=== PATIENT | female | born 1970 | race Caucasian/White ===

== ENCOUNTER → 2018-09-08 | Outpatient (CLI) | payer SELFPAY | END | disposition home or self-care (01) | LOC: LABSPEC 15:43 | PROVIDERS: Family Provider Family Medicine; PCP Family Medicine; Referring Provider Obstetrics & Gynecology; Visit Provider Obstetrics & Gynecology | DX: R30.0 Dysuria (principal) | CPT/HCPCS: 87086; 87088; 87186 ==

== ENCOUNTER 2019-07-25 12:15 | Emergency (ER) | payer BC, SELFPAY ==
[2019-07-25 12:16] VITALS: BP 191/102; PULSE 83; RESP 18; TEMP 36.8; O2SAT 99; BMI 25.8
--- NOTE | 2019-07-25 12:45 | ED.RN ---
mechanical fall, knocked over. loc+ not sure how long less than 5 minutes. balance off like world moving in cirlces. after fall. JOINER since fall. seemed to improve then became worse today with nausea.
--- NOTE | 2019-07-25 12:59 | ED.DCSUM_ITS ---
History of Present Illness Chief Complaint: Head Injury Informant: Patient Occurred: Days - 2 Mechanism/Context: Same level fall Usually ambulates: Without assistance Location: head Quality of Pain: Aching Current Severity: Moderate Maximum Severity: Moderate Worsened by: light a little Relieved by: nothing Associated Symptoms: Loss of consciousness - less than 5 min. Negative for: Parasthesias, Weakness, Loss of function, Inability to ambulate, Amnesia Narrative: [place], her dog spooked a Richardson, who then when and unexpectedly knocked her over, she hit the ground, hitting her right occipital scalp on concrete. She was briefly knocked unconscious. She states that she was ataxic when walking for the next hour or so, but then was feeling better and so did not seek medical attention until today, when she started feeling vertiginous, having a headache, and nauseated. Yesterday she states basically she felt fine. She has had no repeat episodes of syncope since then. She has healthy and takes no anticoagulants or antiplatelet medications. - Past Medical History (1) Migraines Status: Chronic Past Medical History - Allergies and Home Meds Allergies/Adverse Reactions: Allergies Sulfa (Sulfonamide Antibiotics) Adverse Reaction (Verified 07/25/19 12:18) UNKNOWN, TOO LONG AGO Primary Care Physician: Timothy Agustin DO [Primary Care Provider] - 5-7 Days Past Medical History: None Lives: With Family Smoking Status: Never smoker Review of Systems General: Denies: Chills, Fever, Sweats Eyes: Reports: - - photophobia. Denies: Visual changes - bilaterally, Diplopia ENT: Denies: Rhinorrhea, Sore throat Cardiovascular: Denies: Chest pain, Palpitations Respiratory: Denies: Dyspnea, Cough, Dyspnea on exertion Gastrointestinal: Reports: Nausea. Denies: Abdominal pain, Vomiting, Diarrhea, Melena, Hematochezia Genitourinary: Denies: Dysuria, Hematuria, Frequency Musculoskeletal: Denies: Back pain, Extremity Pain Skin: Denies: Rash, Wounds Neurological: Reports: Headache, - - vertigo. Denies: Weakness, Numbness Physical Exam Vital Signs/Narrative: Vital Signs Temp Pulse Resp BP Pulse Ox 07/25/19 12:16 98.2 F 83 18 191/102 H 99 Inital Vital Signs reviewed: Yes General: Well nourished, Well developed Head: Trauma - Tender hematoma right high occipital scalp without crepitance or depression. No laceration or evidence of recent bleeding., - - Negative piper sign bilaterally Eyes: Perrl, EOMI ENT: TM's clear, No hemotympanum or drainage, No trauma. Negative for: Otorrhea, Nasal trauma Neck: Nontender, Full ROM. Negative for: Spinal Tenderness Cardiovascular: Regular rate, Regular rhythm, No murmurs Respiratory: No distress Back: Nontender. Negative for: Spinal Tenderness Extremeties: Full range of motion throughout all 4 extremities, no trauma Skin: Normal color, No rash Neurological: Alert, Oriented x3, Cranial nerves II-XII grossly intact, Normal Strength, Normal Sensation, Normal Gait, - - GCS 15 Psychological: Normal affect, Normal Mood Diagnostic/Tx/Re-eval Impressions Brain CT 07/25/19 12:59 IMPRESSION: Small air-fluid level along the dependent portion of the right sphenoid sinus. Electronically Signed: Dipak Chunluis albertobrad, at 14:06 EDT , Service support , 07/25/19 12:59 Brain/Head without Contrast [CT] Stat - Medical Decision Making CT of the head shows no intracranial hemorrhage or evidence of traumatic injury. She has an incidental small air-fluid level in the right sphenoid sinus. She has no symptoms of sinusitis and I do not think this needs to be treated with antibiotics at this time, but she can follow-up with her doctor regarding this, I treated her symptoms with meclizine and Zofran, and will prescribe her these, advised to follow-up with her doctor as an outpatient. Her blood pressure was high when she got here, repeated prior to discharge and it is 175/99. I suspect this is reactive due to her injury. I do not think she needs to be placed on treatment right now, but needs to follow-up for recheck, which we discussed. ED Disposition - Plan for ED Patient: Disposition: Home or Assisted Living Diagnosis: Closed head injury with brief loss of consciousness, Fall, accidental, Episode of hypertension Instructions: ED Concussion, ED HBP No Tx Prescriptions: Meclizine HCl 25 mg PO Q8H PRN #16 tab PRN Reason: dizziness/vertigo Transmission Status: Pending to [facility] Ondansetron [Zofran Odt] 8 mg PO Q8H PRN PRN #20 tab PRN Reason: Nausea Transmission Status: Pending to [facility] Referrals: Timothy Agustin DO [Primary Care Provider] - 5-7 Days Additional Instructions: You have some fluid in one of your sphenoid sinuses. This can be monitored for now, follow-up with your doctor. Also follow-up closely for blood pressure recheck.
--- NOTE | 2019-07-25 12:59 | CT_ITS ---
STUDY: CT BRAIN WITHOUT CONTRAST REASON FOR EXAM: Female, 48 years old. FALL 3 DAYS AGO RADIATION DOSAGE (If Supplied By Facility): CTDIvol = ( 44.99 ) mGy, DLP = ( 812.98 ) mGycm TECHNIQUE: Transaxial CT imaging of the brain was performed without administration of intravenous contrast material. Individualized dose optimization techniques were used for this CT. COMPARISON: No relevant priors. FINDINGS: Normal soft tissue structures. Normal calvarium. Normal size ventricles and extra-axial spaces for the patient''s age. Normal white matter tracts of the cerebral hemispheres. Normal basal ganglia and thalami. Normal brainstem. Normal cerebellum. There is no intracranial hemorrhage. There are no findings of an acute ischemic infarction. Small air-fluid level along the dependent portion of the right sphenoid sinus. CT/Brain/Head without Contrast IMPRESSION: Small air-fluid level along the dependent portion of the right sphenoid sinus. Electronically Signed: Dipak Ibarra, at 14:06 EDT , Service support ,
[2019-07-25] MEDS: Ondansetron ODT 4 MG Tablet 8 MG PO (14:18)
[2019-07-25] MEDS: Meclizine HCl 25 MG Tablet PO (14:19)
[2019-07-25 14:20] VITALS: BP 155/99; PULSE 79; RESP 16; O2SAT 99
== END 2019-07-25 14:34 | disposition home or self-care (01) ==
LOC: ED 14:32
PROVIDERS: Emergency Provider Emergency Medicine
DX: S06.9X1A Unspecified intracranial injury with loss of consciousness of 30 minutes or less, initial encounter (principal); I10 Essential (primary) hypertension; G43.909 Migraine, unspecified, not intractable, without status migrainosus; Z79.899 Other long term (current) drug therapy; W55.32XA Struck by other hoof stock, initial encounter; Y93.89 Activity, other specified; Y92.008 Other place in unspecified non-institutional (private) residence as the place of occurrence of the external cause; Y99.8 Other external cause status
CPT/HCPCS: 70450; 99283

== ENCOUNTER → 2020-05-01 07:09 | Outpatient (CLI) | payer BC, SELFPAY ==
[2020-05-01 07:35] LABS: Absolute Lymphocyte Count 1.18 X10^3/uL (0.83-4.51); Absolute Neutrophil Count 2.9 X10^3/uL (2.0-7.7); Basophil# 0.02 X10^3/uL; Basophil% 0.4 % (0-1); Eosinophil# 0.08 X10^3/uL; Eosinophils% 1.7 % (0-5); Hematocrit 45.8 % (37-47); Hemoglobin 15.2 g/dL (12.0-15.0); Lymphocyte # 1.18 X10^3/ul (4.0); Lymphocyte % 25.4 % (19-41); Mean Corp Hgb Conc 33.2 g/dL (32-36); Mean Corpuscular Hgb 31.3 pg (27.0-32.0); Mean Corpuscular Volume 94.4 fL (81-99); Mean Platelet Vol. 9.7 fl (6.2-12.0); Monocyte# 0.45 X10^3/uL; Monocyte% 9.7 % (0-10); NRBC Flagged by Analyzer 0 % (0-5); Neutrophil # 2.89 X10^3/uL (2.7-7.7); Neutrophil % 62.4 % (47-70); Platelet Count 191 K/mm3 (150-450); RBC Distribution Width CV 11.8 % (11.6-14.6); RBC Distribution Width SD 40.8 fl (35.1-43.9); Red Blood Count 4.85 M/mm3 (4.2-5.4); White Blood Count 4.6 K/mm3 (4.4-11.0)
[2020-05-01 08:06] LABS: Anion Gap 1 (5-15); BUN 14 mg/dL (7-18); BUN/Creat Ratio 15.7 RATIO (10-20); Calcium,Total 8.9 mg/dL (8.5-10.1); Chloride 111 mmol/L (98-107); Cholesterol 179 mg/dL (200); Creatinine, Serum 0.89 mg/dL (0.55-1.02); EST Glomerular Filtration Rate 72 mL/min (>60); Est Glom Filt Rate - Afr Amer 87 mL/min (>60); Glucose 103 mg/dL (74-106); High Density Lipoprotein 44 mg/dL; Potassium 4.1 mmol/L (3.5-5.1); Sodium Level 141 mmol/L (136-145); Thyroid Stim Hormone (TSH) 1.46 uIU/mL (0.358-3.74); Triglycerides 104 mg/dL; Very Low Density Lipoprotein 21 mg/dL (5-40)
[2020-05-01 08:11] LABS: Color, Urine Yellow (Yellow); Glucose, Dipstick Normal (Normal); Ketone-Dipstick Negative (Negative); Leukocyte Esterase-Dipstick 500 /ul (Negative); Nitrite-Dipstick Positive (Negative); Occult Blood-Urine 150 /ul (Negative); Protein-Dipstick 15 mg/dl (Negative); Specific Gravity, Urine 1.025 (1.002-1.030); Urine Bilirubin Dipstick Negative (Negative); Urine Clarity Sl. Cloudy (Clear); Urine Urobilinogen 1 mg/dl (Normal)
== END ==
PROVIDERS: PCP Family Medicine; Referring Provider Family Medicine; Visit Provider Family Medicine
DX: Z00.00 Encounter for general adult medical examination without abnormal findings (principal); R03.0 Elevated blood-pressure reading, without diagnosis of hypertension
CPT/HCPCS: 36415; 80048; 80061; 81002; 84443; 85025

== ENCOUNTER → 2022-02-05 | Outpatient (CLI) | payer BC, SELFPAY ==
--- NOTE | 2022-02-05 16:27 | BI_ITS ---
MAMMOGRAPHY - BILATERAL SCREENING REASON FOR EXAM: Female, 51 years old. Routine annual screening examination. PERTINENT HISTORY: Non-contributory. TECHNIQUE: Digital bilateral breast neda (3D mammographic acquisition) in the CC and MLO projections. 2-D mediolateral oblique (MLO) and craniocaudad (CC) views of both breasts were obtained. CAD: Full Field Digital Mammography with Computer Added Detection was performed. COMPARISON: No comparison mammograms available at this time. If any prior films become available, an addendum to this report can be generated. FINDINGS: Breast Composition: The breasts are extremely dense, which lowers the sensitivity of mammography. There is an 8.3 mm x 8.3 mm well-defined nodule in the retroareolar region of the right breast. Correlation with ultrasound is recommended. Small benign-appearing bilateral axillary lymph nodes. No other significant abnormalities are identified. BI/SCRN MAMM (CAD)W/NEDA BILAT IMPRESSION: 8.3 mm x 8.3 mm well-defined nodule in the retroareolar region of the right breast. Correlation with ultrasound is recommended. ASSESSMENT CATEGORY: BIRADS Category 0: Incomplete. Need additional imaging evaluation. A letter regarding these results will be sent to the patient by the facility within 30 days. Approximately 10% of breast cancers are not detected by mammography. A normal mammogram should not delay biopsy of a clinically suspicious abnormality. [id number] Electronically Signed: Dipak Ibarra MD at 9:08 EST ,
== END | disposition home or self-care (01) ==
LOC: OPBI 16:26
PROVIDERS: PCP Family Medicine; Referring Provider Family Medicine; Visit Provider Family Medicine
DX: Z12.31 Encounter for screening mammogram for malignant neoplasm of breast (principal)
CPT/HCPCS: 77063; 77067

== ENCOUNTER → 2022-02-13 | Outpatient (CLI) | payer BC, SELFPAY ==
--- NOTE | 2022-02-13 10:51 | US_ITS ---
STUDY: ULTRASOUND BREAST - RIGHT REASON FOR EXAM: Female, 51 years old. Abnormal screening mammogram. TECHNIQUE: Axial and longitudinal images of the RIGHT breast were performed with a high resolution ultrasound transducer. # OF IMAGES: 40 COMPARISON: Comparison is made with prior mammogram dated 02/05/2022. FINDINGS: RIGHT Breast: The mammographic abnormality corresponds to a 1 cm x 0.9 cm x 0.5 cm cystic structure with low level echoes within it. This may represent a small hemorrhagic cyst. There is also evidence of retroareolar ductal dilatation. US/Breast Limited Unilateral IMPRESSION: The mammographic abnormality corresponds to a 1 cm x 0.9 cm x 0.5 semicystic structure with low-level echoes within it. This is suggestive of a small hemorrhagic cyst. There is also evidence of retroareolar ductal dilatation. ASSESSMENT CATEGORY: BIRADS Category 2: Benign. A letter regarding these results will be sent to the patient by the facility within 30 days. Electronically Signed: Dipak Ibarra MD at 14:33 EST ,
== END | disposition home or self-care (01) ==
PROVIDERS: PCP Family Medicine; Visit Provider Family Medicine
DX: N63.10 Unspecified lump in the right breast, unspecified quadrant (principal)
CPT/HCPCS: 76642